=== PATIENT | female | born 2000 | race Caucasian/White ===

== ENCOUNTER 2019-08-15 06:51 | Outpatient (CLI) | payer MEDICAID, SELFPAY ==
--- NOTE | 2019-08-15 07:15 | US_ITS ---
WS: [id number] OBSTETRICAL ULTRASOUND COMPLETE HISTORY: ANATOMY US COMPARISON: 05/30/2019 Single intrauterine gestation in transverse presentation. Cervix is Closed and normal length. Cervical length is 5.9 cm. Normal amount of amniotic fluid surrounds the fetus. Placenta: Anterior, no previa or abruption. Placenta grade 0 Heart: 133 BPM. Four chambers are identified. Anatomy: Intracranial structures and spine are normal. kidneys, stomach and urinary bladd er are unremarkable. Abdominal wall, three-vessel cord and cord insertion site are normal. 4 extremities are present. profile: Unremarkable. Gender: Male. measurements: BPD = 4.4 cm = 19w1d HC = 16.6 cm = 19w2d AC = 14.3 cm = 19w4d FL = 3.1 cm = 19w5d EFW: 303 g., Measurements of insulin concordant. AGA by ultrasound: 19w3d ALHAJI by ultrasound: 01/06/2020 US/US OB >= 14 weeks fetus [id number] IMPRESSION: 1. Single intrauterine gestation of 19w3d with an EDC of 01/06/2020. Compared to the first trimester EDC of 01/07/2020 there has been appropriate interval grow th. 2. Unremarkable screening survey of anatomy.
== END 2019-08-15 06:52 | disposition home or self-care (01) ==
PROVIDERS: Family Provider Family Medicine; PCP Family Medicine; Visit Provider Family Medicine
DX: Z34.02 Encounter for supervision of normal first pregnancy, second trimester (principal)
CPT/HCPCS: 76805

== ENCOUNTER 2019-11-29 08:56 | Outpatient (CLI) | payer MEDICAID, SELFPAY ==
--- NOTE | 2019-11-29 09:30 | US_ITS ---
WS: [id number] RIGHT UPPER QUADRANT ULTRASOUND HISTORY: RUQ PAIN COMPARISON: None available. Liver: 14.2 cm in length. Normal size and echogenicity with no intrahepatic dilatation. No mass. Gallbladder: Normally distended gallbladder. Small amount of sludge in the gallbladder but no shadowi ng. Gallbladder wall is not thickened. CBD: 0.2 cm Pancreas: Normal size and echogenicity. Right kidney: 11.8 cm in length. Normal echogenicity with no mass or hydronephrosis. Aorta and IVC: Unremarkable. No ascites. US/US gall bladder [id number] IMPRESSION: 1. Small amount of gallbladder sludge. No bile duct dilatation or stones ident ified. Patient describes this as the area of intermittent tenderness but is not experiencing symptoms today. 2. Negative liver.
== END 2019-11-29 08:57 | disposition home or self-care (01) ==
LOC: RAD 08:57
PROVIDERS: Family Provider Family Medicine; PCP Family Medicine; Visit Provider Family Medicine
DX: R10.11 Right upper quadrant pain (principal)
CPT/HCPCS: 76705

== ENCOUNTER 2020-01-07 17:40 | Inpatient (IN) | payer MEDICAID, SELFPAY ==
[2020-01-07] VITALS (37 sets, daily range): BP systolic 0–148; BP diastolic 0–83; PULSE 74–98; RESP 16–18; TEMP 36.6–36.8; BMI 29.4
--- NOTE | 2020-01-07 18:35 | P.HP_ITS ---
Providers/Chief Complaint Admitting Physician: Yash Gottlieb MD Primary Care Provider: Yash Gottlieb MD Chief Complaint: Induction of labor History of Present Illness Janna Walters is a 19 year old at 40.0 weeks gestation by LMP consistent with early ultrasound. Her is complicated by The patient is currently doing well. The patient is presenting for induction secondary to postdates. The patient denies any chest pains, shortness of breath, diarrhea, constipation, noted burning with urination, fever, and vaginal bleeding, leakage of fluid. The patient did throw up yesterday and feels that it was secondary to acid reflux. Vitals/I&O/Wt Last Vital Signs Pulse 92 01/07/20 18:29 BP 121/71 01/07/20 18:29 Physical Exam Narrative: EXAM NARRATIVE: General: Alert and oriented x3 Eyes: Pupils equal round and reactive to light and accommodation Mouth: Mucous membranes moist, pharynx non-erythematous Cardiac: Regular rate and rhythm without murmurs Lungs: Clear to auscultation bilaterally without wheezes, crackles or rhonchi Abdomen: Soft, non-tender, fundus consistent with gestational age Extremities: Trace edema in the bilateral lower extremities A&P Assessment and plan (1) Intrauterine : Status: Acute Additional A&P Information The patient is doing well at this time. heart tones are in the mid 150s with moderate variability and good accelerations with a category 1 tracing. Contractions are noted every 2 to 3 minutes, however the patient is not feeling them. We will continue with induction of labor with Cytotec. The patient's cervical exam is 2/50/-2. The patient may have an epidural once she gets to 3 to 4 cm dilation. All questions were answered. Proceed with routine intrapartum management. Attestations Medical Necessity Statement*: The patient will be here for greater than 2 midnights due to routine intrapartum and management of labor and delivery. Coding Level of Care Code Acute Math And Physics Instructor for Chg Fwd Diagnoses Intrauterine Z34.90
[2020-01-07] MEDS: miSOPROStol 100 mcg tablet 25 MCG VAGINAL (19:05)
[2020-01-07 19:07] LABS: Basophils % 0.4 %; Eosinophils % 0.4 %; Hematocrit 36.5 % (37.0-47.0); Hemoglobin 11.5 g/dL (11.5-15.3); Lymphocytes % 26.8 %; Mean Corpuscular HGB Conc 31.5 g/dL (30.0-36.0); Mean Corpuscular Hemoglobin 26.3 pg (28.0-34.0); Mean Corpuscular Volume 83.5 fL (81-99); Mean Platelet Volume 10.4 fL (7.4-10.4); Monocytes # 0.8 10^3/uL (0.2-0.9); Neutrophils # 7.3 10^3/uL (1.8-7.7); Neutrophils % 64.8 %; Nucleated Red Blood Cells % 0 %; Platelet Count 304 10^3/cmm (130-400); Red Blood Count 4.37 10^6/uL (4.1-5.3); White Blood Count 11.3 10^3/uL (4.0-10.0)
[2020-01-07] MEDS: lactated ringers 1,000 ML 999 ML IV (21:30)
[2020-01-08] VITALS (106 sets, daily range): BP systolic 0–152; BP diastolic 0–97; PULSE 72–167; RESP 16–18; TEMP 36.4–37.3; O2SAT 96–100
[2020-01-08] MEDS: lactated ringers 1,000 ML 999 ML IV ×2 (02:20→06:11)
--- NOTE | 2020-01-08 04:15 | ANES.PROC ---
Anesthesia Procedures Procedure/Date: 01/08/20 Epidural: Time Out Performed: Yes Consents Signed: Procedure Consent and NPO Consent Consent: requested by attending/covering physician, from patient, risks and benefits reviewed and patient agrees to proceed Lumbar Level: L3-L4 Epidural position: sitting Epidural procedure: sterile prep of area (betadine), 1% lidocaine to numb the area (3ml), 18 g needle, neg for paresthesia, test dose given, 1.5% xylocaine 1:200k epi (5ml), 0.2% Ropivacaine bolus ml (5ml), placed PCEA, no systemic response, sterile dressing applied, L.U.D. no apparent complications and 0.2% Ropiavacaine @ mls/hr (10ml/hr) Additional Comments: Pt tolerated well and resting comfortable
--- NOTE | 2020-01-08 04:18 | P.ANESUD_ITS ---
Pre-Anesthetic Update Pre-Anesthetic Assessment: Date of Surgery/Procedure: 01/08/20 Preop Kelly gnosis: labor Proposed Procedure: epidural Any changes to Pre-Anesthetic Assessment?: No Last Intake: 21:00 Labs Last 48hrs: Laboratory Results - last 48 hr 01/07/20 18:45 WBC 11.3 H RBC 4.37 Hgb 11.5 Hct 36.5 L MCV 83.5 MCH 26.3 L MCHC 31.5 RDW 14.0 Plt Count 304 MPV 10.4 Neut % (Auto) 64.8 Lymph % (Auto) 26.8 [place] % (Auto) 7.0 Eos % (Auto) 0.4 Baso % (Auto) 0.4 Neut # (Auto) 7.3 Lymph # (Auto) 3.0 [place] # (Auto) 0.8 Eos # (Auto) 0.0 Baso # (Auto) 0.0 Nucleated RBC % (a uto) 0 Nucleated RBCs # 0.0 Vitals: Temperature 98.2 F 01/07/20 22:20 Temperature Source Oral 01/07/20 22:20 Pulse Rate 98 01/08/20 04:14 Pulse Rhythm 01/07/20 19:01 Pulse Strength 3+ Normal 01/07/20 19:01 Respiratory Rate 16 01/07/20 22:20 Respiratory Effort Non-Labored 01/07/20 19:01 Respiratory Depth Normal 01/07/20 19:01 Respiratory Patter n 01/07/20 19:01 Blood Pressure 131/64 01/08/20 04:14 Blood Pressure Coni n 91 01/08/20 04:14 Pulse Oximetry 98 01/08/20 04:08 Oxygen Delivery Me thod 01/07/20 22:20 Cardiac Studies: No Data to Display
[2020-01-08] MEDS: dextrose 5%-lactated ringers 1,000 ML 125 ML IV (04:54)
--- NOTE | 2020-01-08 07:26 | P.PN_ITS ---
Subjective Subjective: Interval history: Patient is doing well. She had 1 dose of Cytotec on the evening of 01/08/2020 and has been keara every 1 to 2 minutes since. The patient had a few scattered late decelerations, however none that were consistent and these improved with position changes and fluid boluses. The patient has received an epidural and she is comfortable. She has no other concerns. Vitals/I&O/Wt Last Vital Signs Temp 98.1 F 01/08/20 04:30 Pulse 83 01/08/20 07:20 Resp 16 01/08/20 04:30 BP 123/79 01/08/20 07:20 Pulse Ox 98 01/08/20 04:08 01/07/20 01/08/20 01/08/20 22:59 06:59 14:59 Intake Total 499.5 / 499.5 1726.517 / 2226.017 Output Total 100 / 100 Balance 499.5 / 499.5 1626.517 / 2126.017 Weight last 48 hrs Weight 166 lb Physical Exam Narrative: EXAM NARRATIVE: General: Alert and oriented x3 Cardiac: Regular rate and rhythm without murmurs Lungs: Clear to auscultation bilaterally without wheezes, crackles or rhonchi Abdomen: Soft, non-tender, fundus consistent with gestational age Extremities: Trace edema in the bilateral lower extremities Urinary Catheter Management^: Elkins: Cath Placed During This Visit: yes Urinary Catheter Date of Insertion: 01/08/20 Urinary Catheter Time of Insertion: 04:30 Data : 01/07/20 18:45 A&P Assessment and plan (1) Intrauterine : Status: Acute Additional A&P Information The patient is doing well at this time. heart tones are in the mid 140s with moderate variability and good accelerations with a category 1 tracing. Contractions are noted every 1 to 3 minutes. The patient is doing well. AROM was performed to augment labor at approximately 7:20 AM. The patient is feeling well. Proceed with routine intrapartum induction of labor. All questions answered. Attestations Medical Necessity Statement*: The patient will be here for greater than 2 midnights due to routine intrapartum and management of labor and delivery. Coding Level of Care Code Acute Supervisor Powdered Metal for Valente Estrada Diagnoses Intrauterine Z34.90
[2020-01-08] MEDS: oxytocin 30 UNIT/500 ML BAG 4 UNIT IV (09:08)
[2020-01-08] MEDS: miSOPROStol 200 mcg Tablet 800 MCG PR (11:17)
--- NOTE | 2020-01-08 11:44 | PM.DELIVERY ---
Delivery Note: Date of delivery: January 08, 2020 Pre-delivery diagnoses: 1. Intrauterine at 40.1 weeks gestation 2. Post-delivery diagnoses: 1. Intrauterine status post spontaneous vaginal delivery at 40.1 weeks gestation 2. Delivery of healthy male weighing 6 pounds 15 ounces with Apgars of 7 and 9 3. GBS negative Procedure: Spontaneous vaginal delivery Op report anesthesia: Epidural Estimated blood loss (mL): 250 Findings: 1. Delivery of healthy male weighing 6 pounds 15 ounces with Apgars of 7 and 9 2. Intact placenta with central umbilical cord insertion site. Pre-Delivery Course: The patient presented to labor and delivery triage for a scheduled induction of labor for postdates on 01/07/2020. The first dose of Cytotec was placed around 7:30 PM. The patient began keara well and keara on her own to the evening and changed to 5 cm by the morning of 01/08/2020. AROM was performed at 7:26 AM to augment the labor process. Clear fluid was noted. The patient's contractions then spaced out, and 4 units of IV Pitocin was started to augment labor. The patient continued to make good change and she was complete by 10:13 AM on 01/08/2020. Delivery: The patient began pushing at 10:32 AM on 01/08/2020. The patient pushed well and the infant delivered in the OA position at 11:08 AM on 01/08/2020. The right shoulder was the anterior shoulder and it delivered without complication. The rest of the infant delivered without complication. No nuchal cord was noted. The infant had good tone at . The mouth and nose were bulb suctioned by myself. The infant began crying shortly after delivery. The infant was placed on the mother's chest where the nurses were waiting to care for him. The cord was clamped by myself after approximately 1 minute. The cord was cut by the 's father. Cord blood was obtained. The cord was then drained of blood and traction was placed on the umbilical cord. The placenta delivered without complication at 11:13 AM on 01/08/2020. The placenta was noted to be intact with a central umbilical cord insertion site. IV Pitocin was bolused. The cervix was inspected and no lacerations were noted. Vaginal wall was inspected and a few abrasions were noted but no suturing was needed. The patient did have moderate bleeding after delivery and was given 800 mcg of Cytotec. The patient's bleeding slowed down well after this. Currently both the mother and infant are doing well. A&P Assessment and plan (1) Intrauterine : Status: Acute Coding Level of Care Code Acute Flooring Machine Operator for Chg Fwd Diagnoses Intrauterine Z34.90
[2020-01-08 23:57] LABS: Hematocrit 32.2 % (37.0-47.0); Hemoglobin 10.2 g/dL (11.5-15.3); Mean Corpuscular HGB Conc 31.7 g/dL (30.0-36.0); Mean Corpuscular Hemoglobin 26.8 pg (28.0-34.0); Mean Corpuscular Volume 84.7 fL (81-99); Mean Platelet Volume 10.5 fL (7.4-10.4); Platelet Count 237 10^3/cmm (130-400); Red Cell Distribution Width 14.4 % (12.1-15.1); White Blood Count 15.5 10^3/uL (4.0-10.0)
[2020-01-09 01:30] VITALS: BP 126/82; PULSE 92; RESP 18; TEMP 36.7
[2020-01-09 05:14] VITALS: BP 117/76; PULSE 64; RESP 18; TEMP 36.6
[2020-01-09 10:25] VITALS: BP 109/66; PULSE 78; RESP 18
--- NOTE | 2020-01-09 14:38 | PM.DCS ---
Discharge Providers Date of Admission: 01/07/20 17:40 Date of Discharge: January 09, 2020 Attending Provider at Admission: Yash Gottlieb MD Attending Provider at Discharge: Yash Gottlieb MD Primary Care Provider: Yash Gottlieb MD Diagnoses at Discharge Discharge Diagnosis (1) Intrauterine : Status: Acute Other Information Additional DC diagnoses/information: 1. Intrauterine status post spontaneous vaginal delivery at 40.1 weeks gestation Reason for Visit Reason for Visit: Induction of labor Hospital Course Hospital Course: The patient presented to labor and delivery triage for a scheduled induction of labor for postdates on 01/07/2020. The first dose of Cytotec was placed around 7:30 PM. The patient began keara well and keara on her own to the evening and changed to 5 cm by the morning of 01/08/2020. AROM was performed at 7:26 AM to augment the labor process. Clear fluid was noted. The patient's contractions then spaced out, and 4 units of IV Pitocin was started to augment labor. The patient continued to make good change and she was complete by 10:13 AM on 01/08/2020. The patient began pushing at 10:32 AM on 01/08/2020. The patient pushed well and the infant delivered in the OA position at 11:08 AM on 01/08/2020. The right shoulder was the anterior shoulder and it delivered without complication. The rest of the delivered without complication. No nuchal cord was noted. The infant had good tone at . The mouth and nose were bulb suctioned by myself. The began crying shortly after delivery. The was placed on the mother's chest where the nurses were waiting to care for him. The cord was clamped by myself after approximately 1 minute. The cord was cut by the infant's father. Cord blood was obtained. The cord was then drained of blood and traction was placed on the umbilical cord. The placenta delivered without complication at 11:13 AM on 01/08/2020. The placenta was noted to be intact with a central umbilical cord insertion site. IV Pitocin was bolused. The cervix was inspected and no lacerations were noted. Vaginal wall was inspected and a few abrasions were noted but no suturing was needed. The patient did have moderate bleeding after delivery and was given 800 mcg of Cytotec. The patient's bleeding slowed down well after this. Currently both the mother and infant are doing well. the patient has done well. Her bleeding has decreased well. She is ambulating, voiding, passing gas and tolerating food by mouth. Her pain is well controlled. All questions were answered. The patient is in agreement with discharge home at this time. Return for recheck at 6 weeks or sooner if needed. Physical Exam Narrative: EXAM NARRATIVE: General: Alert and oriented x3 Cardiac: Regular rate and rhythm without murmurs Lungs: Clear to auscultation bilaterally without wheezes, crackles or rhonchi Abdomen: Soft, mild diffuse tenderness. Uterus is firm and 3 cm below the umbilicus. Extremities: Trace edema in the bilateral lower extremities Urinary Catheter Management^: Elkins: Cath Placed During This Visit: yes, but has since been removed by the nurse Reason for Continuing Indwelling Catheter: Decision to DC Catheter Urinary Catheter Date of Insertion: 01/08/20 Urinary Catheter Time of Insertion: 04:30 Date Urinary Catheter Removed: 01/08/20 Time Urinary Catheter Discontinued: 10:32 Discharge Data Data Completed and Pending: Labs from last 24 hours 01/08/20 23:30 WBC 15.5 H RBC 3.80 L Hgb 10.2 L Hct 32.2 L MCV 84.7 MCH 26.8 L MCHC 31.7 RDW 14.4 Plt Count 237 MPV 10.5 H Vitals: Last Vital Signs Temp 97.9 F 01/09/20 05:14 Pulse 64 01/09/20 05:14 Resp 18 01/09/20 05:14 BP 117/76 01/09/20 05:14 Pulse Ox 98 01/08/20 04:08 Discharge Plan Discharge Patient Disposition: Home, Self-Care Condition: Good Prescriptions: New ibuprofen 800 mg Tablet 800 mg PO TID Qty: 60 RF: 0 ferrous sulfate 325 mg (65 mg iron) tablet 325 mg PO BID Qty: 30 RF: 0 Continued 28 mg iron- 800 mcg Tablet 1 tab PO DAILY RF: 0 Discharge Orders: Discharge Order (Routine); Ordered 01/09/20 Ordered By: Yash Gottlieb Referrals: Yash Gottlieb MD [Primary Care Provider] - 6 Weeks Discharge Diet: Advance as tolerated Discharge Activity: Increase activity as tolerated Activity Restrictions/Additional Instructions: Nothing per vagina for 6 weeks. No baths for 6 weeks, however showers are okay. If you have any concerns prior to your appointment, please call [facility] for a sooner appointment. Discharge Attestations Time Spent in Discharge Care*: greater than 30 min Specific Discharge Activities: Specific discharge activities: educating patient, educating and/or supporting family/caregiver and documenting/other paperwork Quality Metrics Clinical Quality Measures During this hospital stay, did patient experience: None Coding Level of Care Code Acute Investment Recovery Technician for Chg Fwd Diagnoses Intrauterine Z34.90
[2020-01-09 16:19] VITALS: BP 115/70; PULSE 85; RESP 18; TEMP 36.7
[2020-01-09 17:45] VITALS: BP 112/78; PULSE 65; RESP 18; TEMP 36.7; O2SAT 98
== END 2020-01-09 17:50 | disposition home or self-care (01) | DRG 807 ==
PROVIDERS: Admitting Provider Family Medicine; PCP Family Medicine; Visit Provider Family Medicine
DX: O48.0 Post-term pregnancy (principal); Z37.0 Single live birth; Z3A.40 40 weeks gestation of pregnancy
CPT/HCPCS: 12345; 36415; 51702; 59025; 59409; 85025; 85027; 98960; J2795

== ENCOUNTER 2020-02-16 01:56 | Emergency (ER) | payer MEDICAID, SELFPAY ==
[2020-02-16] VITALS (7 sets, daily range): BP systolic 98–127; BP diastolic 62–88; PULSE 62–82; RESP 16–18; TEMP 36.5–36.6; O2SAT 99–100; BMI 25.8
--- NOTE | 2020-02-16 02:43 | W.ED.ABDPA2 ---
Documented by User: Tameka Moreira 02/16/20 04:59 HPI - Abdominal Pain General: Chief Complaint: Abdominal Pain Stated Complaint: abd pain Time Seen by Provider: 02/16/20 02:04 Source: patient and family Mode of arrival: ambulatory Limitations: no limitations History of Present Illness: HPI narrative: Janna is a nice 19-year-old female who comes in complaining of epigastric and right upper quadrant pain. She states she is had pain like this intermittently since August. She states that she has been told she has a bad gallbladder but has been unable to care for this. Describes pain as a deep aching pain without radiation. She is had associated nausea and vomiting. The symptoms tonight have been going on for the past 2-1/2 hours. She is unaware of any eliciting factors. She denies any aggravating or alleviating factors. She denies any diarrhea, constipation, no vaginal discharge/bleeding or urinary symptoms. Associated Symptoms: Reports nausea and vomiting; Denies chills, coffee ground emesis, constipation, GI cramping, diarrhea, dysuria, fever(s), heartburn, hematochezia, hematuria, hematemesis, melena and syncope Review of Systems Const: Denies: fever(s), chills, body aches, fatigue, malaise or diaphoresis Eyes: Denies: change in vision, blurry vision, blind spots, photophobia, eye discharge or eye redness ENMT: Denies: throat pain, odynophagia, hoarseness, swelling of lips/tongue, oral sores, ear or mastoid pain, ear discharge, change in hearing or nasal discharge Card: Denies: chest pain, palpitations, irregular heart rhythm, edema, lightheadedness, syncope, pre-syncope, dyspnea on exertion or orthopnea Resp: Denies: dyspnea, productive cough, non-productive cough, wheezing, hemoptysis or chest congestion GI: Reports: abdominal pain, nausea and vomiting; Denies: hematemesis, coffee ground emesis, heartburn, diarrhea, constipation, GI cramping, hematochezia or melena : Denies: flank pain, dysuria, urinary frequency, urinary urgency or hematuria Musc: Denies: neck pain, back pain, extremity pain, extremity swelling, joint pain, joint swelling, joint redness, joint warmth or joint stiffness Skin/Breast: Denies: rash, pruritus, erythema, skin tenderness or jaundice Neuro: Denies: headache(s), numbness in extremities, weakness in extremities, sensory changes, lack of coordination, difficulty walking, dizziness, vertigo, confusion, Slurred speech present or seizure-like activity Tono/Lymph: Denies: easy bruising, easy bleeding, petechiae, purpura or enlarged lymph nodes All/Imm: Denies: urticaria, throat swelling, tongue swelling, facial swelling or acute wheezing PFSH ED PFSH: Medical History No pertinent past medical history Surgical History No pertinent past surgical history Physical Exam Const: COMMON NORMALS: no acute distress, patient oriented x3, no limitations, healthy appearing and well nourished GENERAL APPEARANCE: cooperative, well kempt and well developed HENMT: COMMON NORMALS: normocephalic, atraumatic, external ears normal, EAC's normal and Normal external nose present HEAD & SCALP: normal to inspection, normocephalic and atraumatic FACE & SINUS: normal facial exam and face symmetric NOSE: Normal external nose present and Normal nares present EXTERNAL EAR: Yes external ears normal EXTERNAL AUDITORY CANAL: EAC's normal MOUTH: Normal oral and palatal mucosa present, lip normal and tongue normal Eye: COMMON NORMALS: Equal, round and reactive pupils present and conjunctivae normal GENERAL EYE: appearance normal, both eyes and all related structures ALIGNMENT: Yes alignment normal PERIORBITAL: periorbital findings normal EYELID: eyelids normal CONJUNCTIVA: Yes conjunctivae normal SCLERA: sclerae normal PUPIL: Yes Equal, round and reactive pupils present Neck/C-Spine: COMMON NORMALS: full ROM, no lymphadenopathy, supple, no meningeal signs and no JVD GENERAL: Yes normal visual inspection and Yes trachea midline Chest: COMMONS NORMALS: normal inspection of the chest and normal palpation of entire chest wall Resp: COMMON NORMALS: normal respiratory effort, No retractions and No use of accessory muscles EFFORT & INSPECTION: Yes able to speak in complete sentences and Yes symmetric chest movement AUSCULTATION: no crackles, no rales, no rhonchi and no wheezes Cardio: COMMON NORMALS: no JVD, regular rate, regular rhythm, S1 normal heart sound present and S2 normal heart sound present RATE: regular rate RHYTHM: regular rhythm HEART SOUNDS: S1 normal heart sound present, S2 normal heart sound present, no click, no gallops, no murmurs, no rubs and abnormal split S2 GI: COMMON NORMALS: Soft to palpation and No hepatosplenomegaly present PALPATION: Yes Soft to palpation, Yes Tenderness to palpation present (GI) Details: RUQ, No Guarding due to palpation present (GI), No Rigid due to palpation, Yes No hepatosplenomegaly present, No Hernia present, No Palpable mass present and No Pulsatile mass present : COMMON NORMALS: Yes no CVA tenderness BLADDER/KIDNEY EXAM: Yes no CVA tenderness EXTERNAL FEMALE EXAM: No Hernia present Back/Pelvis: COMMON NORMALS: no CVA tenderness, thoracic and lumbar spine normal to inspection, no thoracic nor lumbar tenderness and thoraco-lumbar ROM normal Extremity: COMMON NORMALS: normal to inspection, full ROM, capillary refill normal, no joint enlargement, no clubbing, cyanosis or edema and no calf tenderness Neuro: COMMON NORMALS: patient oriented x3, CN's II-XII intact bilaterally, moves all extremities, no focal motor deficits and no sensory deficits noted MENINGEAL SIGNS: Yes no meningeal signs SPEECH: speech normal Psych: COMMON NORMALS: mental status grossly normal, Normal thought process present, cooperative, normal affect, speech normal and activity/motor behavior normal APPEARANCE: Yes well kempt SPEECH: Yes normal speech THOUGHT PROCESS: Normal thought process present Skin: COMMON NORMALS: no rashes or lesions noted, turgor normal, no jaundice, no petechiae and no mottling GENERAL SKIN EXAM: no rashes or lesions noted and turgor normal Course Vital Signs: Vital signs: Vital Signs Temperature 97.7 F 02/16/20 04:26 Pulse Rate 82 02/16/20 11:34 Respiratory Rate 18 02/16/20 11:34 Blood Pressure 111/71 02/16/20 11:34 Pulse Oximetry 100 02/16/20 11:34 MDM - Abdominal Pain Lab Data: Attestation: I reviewed the patient's lab results. Labs: Lab Results 02/16/20 02/16/20 02/16/20 Range/Units 02:51 02:51 02:51 WBC 11.9 H (4.0-10.0) 10^3/ uL RBC 4.62 (4.1-5.3) 10^6/u L Hgb 12.2 (11.5-15.3) g/dL Hct 39.1 (37.0-47.0) % MCV 84.6 (81-99) fL MCH 26.4 L (28.0-34.0) pg MCHC 31.2 (30.0-36.0) g/dL RDW 13.4 (12.1-15.1) % Plt Count 275 (130-400) 10^3/c mm MPV 10.2 (7.4-10.4) fL Neut % (Auto) 60.9 % Lymph % (Auto) 29.9 % [place] % (Auto) 5.6 % Eos % (Auto) 2.5 % Baso % (Auto) 0.8 % Neut # (Auto) 7.22 (1.8-7.7) 10^3/u L Lymph # (Auto) 3.6 (0.8-4.8) 10^3/u L [place] # (Auto) 0.7 (0.2-0.9) 10^3/u L Eos # (Auto) 0.3 (0.0-0.8) 10^3/u L Baso # (Auto) 0.1 (0.0-0.1) 10^3/u L Nucleated RBC % (a uto) 0 % Nucleated RBCs # 0.0 /100WBC Sodium 143 (136-145) mmol/L Potassium 3.6 (3.5-5.1) mmol/L Chloride 107 (98-107) mmol/L Carbon Dioxide 24 (22-29) mmol/L Anion Gap 15.6 (5-19) BUN 8 (6-20) mg/dL Creatinine 0.7 (0.5-0.9) mg/dL GFR Calculation 105.6 (90-130) mL/min Glucose 92 (65-115) mg/dL Calculated Osmolal ity 292 (285-295) mOsm/k g Calcium 8.8 (8.5-10.5) mg/dL Total Bilirubin 0.2 (0.15-1.2) mg/dL AST 17 (0-32) U/L ALT 13 (0-33) U/L Alkaline Phosphata se 115 H (35-105) IU/L Total Protein 7.1 (6.6-8.7) g/dL Albumin 4.1 (3.5-5.2) g/dL Globulin 3.0 (1.3-4.6) g/dL Lipase 292 H (13-60) U/L HCG, Qual Negative (Negative) Urine Color (Yellow) Urine Appearance (CLEAR) Urine pH (5-7) Ur Specific Gravit y (1.005-1.030) Urine Protein (Negative) Urine Glucose (UA) (Normal) Urine Ketones (Negative) Urine Blood (Negative) Urine Nitrate (Negative) Urine Bilirubin (NEGATIVE) Urine Urobilinogen (Negative) mg/dL Ur Leukocyte Adore ase (Negative) Urine RBC (0-2) /hpf Urine WBC (0-5) /hpf Ur Squamous Epith Cells (0-5) Urine Bacteria (NONE) Nasal/Oral COVID-1 9 PCR 02/16/20 02/16/20 Range/Units 04:30 11:31 WBC (4.0-10.0) 10^3/ uL RBC (4.1-5.3) 10^6/u L Hgb (11.5-15.3) g/dL Hct (37.0-47.0) % MCV (81-99) fL MCH (28.0-34.0) pg MCHC (30.0-36.0) g/dL RDW (12.1-15.1) % Plt Count (130-400) 10^3/c mm MPV (7.4-10.4) fL Neut % (Auto) % Lymph % (Auto) % [place] % (Auto) % Eos % (Auto) % Baso % (Auto) % Neut # (Auto) (1.8-7.7) 10^3/u L Lymph # (Auto) (0.8-4.8) 10^3/u L [place] # (Auto) (0.2-0.9) 10^3/u L Eos # (Auto) (0.0-0.8) 10^3/u L Baso # (Auto) (0.0-0.1) 10^3/u L Nucleated RBC % (a uto) % Nucleated RBCs # /100WBC Sodium (136-145) mmol/L Potassium (3.5-5.1) mmol/L Chloride (98-107) mmol/L Carbon Dioxide (22-29) mmol/L Anion Gap (5-19) BUN (6-20) mg/dL Creatinine (0.5-0.9) mg/dL GFR Calculation (90-130) mL/min Glucose (65-115) mg/dL Calculated Osmolal ity (285-295) mOsm/k g Calcium (8.5-10.5) mg/dL Total Bilirubin (0.15-1.2) mg/dL AST (0-32) U/L ALT (0-33) U/L Alkaline Phosphata se (35-105) IU/L Total Protein (6.6-8.7) g/dL Albumin (3.5-5.2) g/dL Globulin (1.3-4.6) g/dL Lipase (13-60) U/L HCG, Qual (Negative) Urine Color Yellow (Yellow) Urine Appearance Hazy A (CLEAR) Urine pH 6 (5-7) Ur Specific Gravit y 1.020 (1.005-1.030) Urine Protein Neg (Negative) Urine Glucose (UA) Norm (Normal) Urine Ketones Negative (Negative) Urine Blood Neg (Negative) Urine Nitrate Negative (Negative) Urine Bilirubin Neg (NEGATIVE) Urine Urobilinogen 1 H (Negative) mg/dL Ur Leukocyte Adore ase Negative (Negative) Urine RBC 0-4 H (0-2) /hpf Urine WBC 0-4 H (0-5) /hpf Ur Squamous Epith Cells 5-10 H (0-5) Urine Bacteria 1+ H (NONE) Nasal/Oral COVID-1 9 PCR Not detected Imaging Data ^: US: Radiologist's impression: [address] [address] Ultrasound Report Signed Patient: Janna Walters Unit #: [id number] : 2000 Age/Sex: 19 / F ADM Date: 02/16/20 Loc: ER Room/Bed: Attending Dr: Ordering Provider/Ordering MD: Tameka Moreira DO Date of Service: 02/16/20 Procedure(s): US gall bladder 98287 Accession Number(s): [id number] Report Number: [id number] PROCEDURE INFORMATION: Exam: US Abdomen, Limited; Right Upper Quadrant Exam date and time: 02/16/2020 3:49 AM Age: 19 years old Clinical indication: Abdominal pain; Acute TECHNIQUE: Imaging protocol: US abdomen. Real time ultrasound with image documentation. Limited exam focused on the right upper quadrant. COMPARISON: US gall bladder [id number] 11/29/2019 9:24 AM FINDINGS: Liver: Hepatic parenchymal echotexture is normal. No visible mass. Gallbladder: Gallbladder contains sludge and stones. The lumen is distended. Sonographic Kruger sign is positive. No significant gallbladder wall thickening. Common bile duct: The common bile duct is nondilated measuring 4 mm. Pancreas: The pancreas is unremarkable. Right kidney: The right kidney is unremarkable. Aorta: The abdominal aorta is unremarkable. Portal venous: The portal vein is patent. Inferior vena cava: The IVC is unremarkable. US/US gall bladder [id number] IMPRESSION: Suspicious findings for acute cholecystitis including gallbladder distention, stones, and positive sonographic Kruger sign. Dictated By: Jean Claude Ruvalcaba MD Signed By: Jean Claude Ruvalcaba MD Signed Date/Time: 02/16/20413 DD/ 2 Discharge Plan Discharge Patient Disposition: Home, Self-Care Clinical Impression: Cholecystitis Condition: Stable Prescriptions: New hydrocodone-acetaminophen 5-325 mg tablet 1 tab PO Q6H PRN (Reason: pain) Qty: 25 RF: 0 Zofran 4 mg tablet 4 mg PO Q6H PRN (Reason: nausea and vomiting) Qty: 20 RF: 0 No Action PNV cmb#95-ferrous fumarate-FA [] 28 mg iron- 800 mcg Tablet 1 tab PO DAILY RF: 0 ferrous sulfate 325 mg (65 mg iron) tablet 325 mg PO BID Qty: 30 RF: 0 Discharge Orders: Discharge Order (Routine); Ordered 02/16/20 Ordered By: Campbell Lauren Referrals: Dominik Hansen MD [Physician] - (Follow-up on cholecystitis from the ER over the weekend. Discussed with him he was planning on take her to surgery on Tuesday) Discharge Diet: As Directed Discharge Activity: Limit activity as instructed Activity Restrictions/Additional Instructions: Discharge home on bland diet. No meats no tomato based products no spicy foods no citrus fruits no greasy or fried foods. Contact Dr. Hansen's office for a follow-up on February 18 with anticipated surgery on February 19. You have been COVID swab today in anticipation of your surgery as a prescreening test. We asked that you self isolate completely at your home if you do have to leave home wear a mask. Discharge Date/Time: 02/16/20 12:00 Sign Out Sign Out Data: Patient Sign Out occurred on 02/16/20 at 05:53. Patient's care was discussed, and care was transferred from Tameka Moreira to Campbell Lauren DO. Sign Out Comment: Case turned over to Dr. Lauren at change of shift, chemistry panel pending. Last updated by Tameka Moreira at 02/16/20 05:35 Coding Level of Care Code ED Dye Tank Tender for Chg Fwd Exam Comprehensive Documented by User: Campbell Lauren DO 02/19/20 07:18 HPI - Abdominal Pain General: Chief Complaint: Abdominal Pain Stated Complaint: abd pain Time Seen by Provider: 02/16/20 02:04 [facility] ED PFSH: Medical History No pertinent past medical history Surgical History No pertinent past surgical history Course Vital Signs: Vital signs: Vital Signs Temperature 97.7 F 02/16/20 04:26 Pulse Rate 82 02/16/20 11:34 Respiratory Rate 18 02/16/20 11:34 Blood Pressure 111/71 02/16/20 11:34 Pulse Oximetry 100 02/16/20 11:34 MDM - Abdominal Pain MDM Narrative: Medical decision making narrative: Reviewed findings with the patient and imaging. Discussed Dr. Hansen organ to go ahead and discharge the patient home she 6-week I do believe she has cholecystitis although it is not acute at this time. We will discharge her home with antiemetics pain control reviewed dietary discharge instructions. She will see Dr. Hansen on the with anticipation of cholecystectomy on outpatient basis on the . She has any worsening problems she should return. we do it did swab her for COVID today, this is ended in anticipation of surgery for screening purposes she has not had any symptoms. I did recommend to her that she self isolate between now and when she has surgery to avoid any potential for community-acquired COVID prior to surgery. Lab Data: Labs: Lab Results 02/16/20 02/16/20 02/16/20 Range/Units 02:51 02:51 02:51 WBC 11.9 H (4.0-10.0) 10^3/ uL RBC 4.62 (4.1-5.3) 10^6/u L Hgb 12.2 (11.5-15.3) g/dL Hct 39.1 (37.0-47.0) % MCV 84.6 (81-99) fL MCH 26.4 L (28.0-34.0) pg MCHC 31.2 (30.0-36.0) g/dL RDW 13.4 (12.1-15.1) % Plt Count 275 (130-400) 10^3/c mm MPV 10.2 (7.4-10.4) fL Neut % (Auto) 60.9 % Lymph % (Auto) 29.9 % [place] % (Auto) 5.6 % Eos % (Auto) 2.5 % Baso % (Auto) 0.8 % Neut # (Auto) 7.22 (1.8-7.7) 10^3/u L Lymph # (Auto) 3.6 (0.8-4.8) 10^3/u L [place] # (Auto) 0.7 (0.2-0.9) 10^3/u L Eos # (Auto) 0.3 (0.0-0.8) 10^3/u L Baso # (Auto) 0.1 (0.0-0.1) 10^3/u L Nucleated RBC % (a uto) 0 % Nucleated RBCs # 0.0 /100WBC Sodium 143 (136-145) mmol/L Potassium 3.6 (3.5-5.1) mmol/L Chloride 107 (98-107) mmol/L Carbon Dioxide 24 (22-29) mmol/L Anion Gap 15.6 (5-19) BUN 8 (6-20) mg/dL Creatinine 0.7 (0.5-0.9) mg/dL GFR Calculation 105.6 (90-130) mL/min Glucose 92 (65-115) mg/dL Calculated Osmolal ity 292 (285-295) mOsm/k g Calcium 8.8 (8.5-10.5) mg/dL Total Bilirubin 0.2 (0.15-1.2) mg/dL AST 17 (0-32) U/L ALT 13 (0-33) U/L Alkaline Phosphata se 115 H (35-105) IU/L Total Protein 7.1 (6.6-8.7) g/dL Albumin 4.1 (3.5-5.2) g/dL Globulin 3.0 (1.3-4.6) g/dL Lipase 292 H (13-60) U/L HCG, Qual Negative (Negative) Urine Color (Yellow) Urine Appearance (CLEAR) Urine pH (5-7) Ur Specific Gravit y (1.005-1.030) Urine Protein (Negative) Urine Glucose (UA) (Normal) Urine Ketones (Negative) Urine Blood (Negative) Urine Nitrate (Negative) Urine Bilirubin (NEGATIVE) Urine Urobilinogen (Negative) mg/dL Ur Leukocyte Adore ase (Negative) Urine RBC (0-2) /hpf Urine WBC (0-5) /hpf Ur Squamous Epith Cells (0-5) Urine Bacteria (NONE) Nasal/Oral COVID-1 9 PCR 02/16/20 02/16/20 Range/Units 04:30 11:31 WBC (4.0-10.0) 10^3/ uL RBC (4.1-5.3) 10^6/u L Hgb (11.5-15.3) g/dL Hct (37.0-47.0) % MCV (81-99) fL MCH (28.0-34.0) pg MCHC (30.0-36.0) g/dL RDW (12.1-15.1) % Plt Count (130-400) 10^3/c mm MPV (7.4-10.4) fL Neut % (Auto) % Lymph % (Auto) % [place] % (Auto) % Eos % (Auto) % Baso % (Auto) % Neut # (Auto) (1.8-7.7) 10^3/u L Lymph # (Auto) (0.8-4.8) 10^3/u L [place] # (Auto) (0.2-0.9) 10^3/u L Eos # (Auto) (0.0-0.8) 10^3/u L Baso # (Auto) (0.0-0.1) 10^3/u L Nucleated RBC % (a uto) % Nucleated RBCs # /100WBC Sodium (136-145) mmol/L Potassium (3.5-5.1) mmol/L Chloride (98-107) mmol/L Carbon Dioxide (22-29) mmol/L Anion Gap (5-19) BUN (6-20) mg/dL Creatinine (0.5-0.9) mg/dL GFR Calculation (90-130) mL/min Glucose (65-115) mg/dL Calculated Osmolal ity (285-295) mOsm/k g Calcium (8.5-10.5) mg/dL Total Bilirubin (0.15-1.2) mg/dL AST (0-32) U/L ALT (0-33) U/L Alkaline Phosphata se (35-105) IU/L Total Protein (6.6-8.7) g/dL Albumin (3.5-5.2) g/dL Globulin (1.3-4.6) g/dL Lipase (13-60) U/L HCG, Qual (Negative) Urine Color Yellow (Yellow) Urine Appearance Hazy A (CLEAR) Urine pH 6 (5-7) Ur Specific Gravit y 1.020 (1.005-1.030) Urine Protein Neg (Negative) Urine Glucose (UA) Norm (Normal) Urine Ketones Negative (Negative) Urine Blood Neg (Negative) Urine Nitrate Negative (Negative) Urine Bilirubin Neg (NEGATIVE) Urine Urobilinogen 1 H (Negative) mg/dL Ur Leukocyte Adore ase Negative (Negative) Urine RBC 0-4 H (0-2) /hpf Urine WBC 0-4 H (0-5) /hpf Ur Squamous Epith Cells 5-10 H (0-5) Urine Bacteria 1+ H (NONE) Nasal/Oral COVID-1 9 PCR Not detected Discharge Plan Discharge Patient Disposition: Home, Self-Care Clinical Impression: Cholecystitis Condition: Stable Prescriptions: New hydrocodone-acetaminophen 5-325 mg tablet 1 tab PO Q6H PRN (Reason: pain) Qty: 25 RF: 0 Zofran 4 mg tablet 4 mg PO Q6H PRN (Reason: nausea and vomiting) Qty: 20 RF: 0 No Action PNV cmb#95-ferrous fumarate-FA [] 28 mg iron- 800 mcg Tablet 1 tab PO DAILY RF: 0 ferrous sulfate 325 mg (65 mg iron) tablet 325 mg PO BID Qty: 30 RF: 0 Discharge Orders: Discharge Order (Routine); Ordered 02/16/20 Ordered By: Campbell Lauren Referrals: Dominik Hansen MD [Physician] - (Follow-up on cholecystitis from the ER over the weekend. Discussed with him he was planning on take her to surgery on Tuesday) Discharge Diet: As Directed Discharge Activity: Limit activity as instructed Activity Restrictions/Additional Instructions: Discharge home on bland diet. No meats no tomato based products no spicy foods no citrus fruits no greasy or fried foods. Contact Dr. Hansen's office for a follow-up on February 18 with anticipated surgery on February 19. You have been COVID swab today in anticipation of your surgery as a prescreening test. We asked that you self isolate completely at your home if you do have to leave home wear a mask. Discharge Date/Time: 02/16/20 12:00 Sign Out Sign Out Data: Patient Sign Out occurred on 02/16/20 at 05:53. Patient's care was discussed, and care was transferred from Tameka Moreira to Campbell Lauren DO. Sign Out Comment: Case turned over to Dr. Lauren at change of shift, chemistry panel pending. Last updated by Tameka Moreira at 02/16/20 05:35 Coding Level of Care Code ED Dye Tank Tender for Chg Fwd Exam Comprehensive
[2020-02-16 03:17] LABS: Basophils # 0.1 10^3/uL (0.0-0.1); Basophils % 0.8 %; Eosinophils # 0.3 10^3/uL (0.0-0.8); Eosinophils % 2.5 %; Hematocrit 39.1 % (37.0-47.0); Hemoglobin 12.2 g/dL (11.5-15.3); Lymphocytes # 3.6 10^3/uL (0.8-4.8); Lymphocytes % 29.9 %; Mean Corpuscular HGB Conc 31.2 g/dL (30.0-36.0); Mean Corpuscular Hemoglobin 26.4 pg (28.0-34.0); Mean Corpuscular Volume 84.6 fL (81-99); Mean Platelet Volume 10.2 fL (7.4-10.4); Monocytes # 0.7 10^3/uL (0.2-0.9); Monocytes % 5.6 %; Neutrophils # 7.22 10^3/uL (1.8-7.7); Neutrophils % 60.9 %; Nucleated Red Blood Cells % 0 %; Platelet Count 275 10^3/cmm (130-400); Red Blood Count 4.62 10^6/uL (4.1-5.3); Red Cell Distribution Width 13.4 % (12.1-15.1); White Blood Count 11.9 10^3/uL (4.0-10.0)
[2020-02-16] MEDS: ondansetron 2 mg/ML SDV 2 mL 4 MG IVP (04:04)
[2020-02-16] MEDS: morphine 4 mg/mL SDV 1 mL IVP (04:06)
[2020-02-16] MEDS: sodium chloride 0.9% 1,000 ML 999 ML IV (04:14)
[2020-02-16 04:56] LABS: HCG, Serum Qual Negative (Negative)
[2020-02-16 05:19] LABS: Urine Appearance Hazy (CLEAR); Urine Color Yellow (Yellow)
[2020-02-16 05:22] LABS: Bacteria Urine 1+; Bilirubin Urine Neg (NEGATIVE); Blood Urine Neg (Negative); Glucose Urine UA Norm (Normal); Ketones Urine Negative (Negative); Leukocyte Esterase Urine Negative (Negative); Nitrate Urine Negative (Negative); Protein Urine Neg (Negative); RBC Urine 0-4 /hpf (0-2); Urobilinogen Urine 1 mg/dL (Negative); WBC Urine 0-4 /hpf (0-5); pH Urine 6 (5-7)
[2020-02-16 05:23] LABS: Add Urine Culture? No
[2020-02-16] MEDS: piperacillin-tazobactam 3.375 GM in sodium chloride 0.9% (plus) 50 ML IV (05:33)
[2020-02-16 06:01] LABS: Alanine Aminotransferase 13 U/L (0-33); Albumin Level 4.1 g/dL (3.5-5.2); Alkaline Phosphatase 115 IU/L (35-105); Anion Gap 15.6 (5-19); Aspartate Amino Transferase 17 U/L (0-32); Blood Urea Nitrogen 8 mg/dL (6-20); Calcium 8.8 mg/dL (8.5-10.5); Carbon Dioxide 24 mmol/L (22-29); Chloride 107 mmol/L (98-107); Creatinine Clr Calc Pharmacy 116.2615; Glomerular Filtration Rate 105.6 mL/min (90-130); Glucose 92 mg/dL (65-115); Lipase 292 U/L (13-60); Osmolality Calculated 292 mOsm/kg (285-295); Potassium 3.6 mmol/L (3.5-5.1); Sodium 143 mmol/L (136-145); Total Bilirubin 0.2 mg/dL (0.15-1.2); Total Protein 7.1 g/dL (6.6-8.7)
--- NOTE | 2020-02-16 06:30 | MRR_ITS ---
PROCEDURE INFORMATION: Exam: MR Abdomen Without Contrast, MRCP. Exam date and time: 02/16/2020 8:30 AM Age: 19 years old Clinical indication: Abdominal pain; Patient HX: PT C/O generalized abd pain since August 2019. Worse this morning. ; Additional info: Supected choledocolithiasis - TECHNIQUE: Imaging protocol: MR of the abdomen without contrast. COMPARISON: US gall bladder [id number] 02/16/2020 3:44 AM FINDINGS: Liver: No mass. Gallbladder and bile ducts: Cholelithiasis, no gallbladder wall thickening or pericholecystic edema. No intrahepatic or extrahepatic biliary ductal dilatation, common duct estimated at 3 mm. No choledocholithiasis. Pancreas: Unremarkable. No ductal dilation. Intraperitoneal space: No fluid collection. MR/MR MRCP [id number] IMPRESSION: Cholelithiasis, no choledocholithiasis.
--- NOTE | 2020-02-16 06:48 | PC.NURSE ---
Patient completing MRI screening form
--- NOTE | 2020-02-16 06:59 | PC.NURSE ---
take over lpatient care patient resting quietly
--- NOTE | 2020-02-16 08:22 | PC.NURSE ---
patient to mri per ems
--- NOTE | 2020-02-16 10:06 | PC.NURSE ---
0915 patient returned from ri
--- NOTE | 2020-02-18 08:51 | DCPLANNER ---
lead assistant manager had message to schedule a follow up appointment for patient with general surgery. lead assistant manager called [facility], spoke with Jesenia, gave clinic patients information. lead assistant manager was told that patients information would be printed and reviewed. Clinic will call patient with appointment information.
[2020-02-18 11:24] LABS: Coronavirus Lab Test PTC NOT DETECTED
--- NOTE | 2020-02-19 12:06 | DCPLANNER ---
Patient has a follow up appointment scheduled for Wednesday, February 19, 2020 at 3:[address] Hansen, at [facility]. Clinic called patient with appointment information.
--- NOTE | 2020-02-21 12:32 | DCPLANNER ---
Patient did attend appointment scheduled for 02.19.20 with [facility].
== END 2020-02-16 12:00 | disposition home or self-care (01) ==
PROVIDERS: Emergency Medicine; Emergency Provider Family Medicine; PCP Family Medicine
DX: K81.9 Cholecystitis, unspecified (principal)
CPT/HCPCS: 12345; 36415; 74181; 76705; 80053; 81001; 83690; 84703; 85025; 87635; 96365; 96375; 99283; J2270; J2405; J2543; J7030

== ENCOUNTER 2020-02-20 07:02 | Day surgery (SDC) | payer MEDICAID, SELFPAY ==
[2020-02-20] VITALS (9 sets, daily range): BP systolic 105–136; BP diastolic 67–96; PULSE 66–110; RESP 12–20; TEMP 36.5–37; O2SAT 98–100
[2020-02-20 07:27] LABS: OR HCG Qualitative Urine Negative (Negative)
[2020-02-20] MEDS: sodium chloride 0.9% 1,000 ML 30 ML IV (07:44)
[2020-02-20] MEDS: scopolamine 1.5 Patch 1 PATCH TRANSDERMA (07:44)
--- NOTE | 2020-02-20 08:06 | W.PM.OPSUD ---
Surgery/Procedure H&P Update DATE OF PROCEDURE: February 20, 2020 DATE H&P PERFORMED: 02/19/20 H&P UPDATE INFORMATION: I have reviewed H&P completed within last 30 days, I have examined patient prior to procedure and No changes to prior documentation PREOP DIAGNOSIS: cholelithiasis PLANNED PROCEDURE: Operation Date: 02/20/20 09:00 Proposed Procedures p Laparoscopic poss Open Cholecystectomy 27423 K80.20(Not Applicable) - Dominik Hansen MD
--- NOTE | 2020-02-20 08:19 | ANES.PREANE2 ---
Pre-Anesthetic Assessment Pre-Anesthetic Assessment: Height/Weight: Height 1.6 m Weight 63.503 kg Temp Pulse Resp BP Pulse Ox 97.7 F 110 H 18 105/84 98 02/20/20 07:28 02/20/20 07:28 02/20/20 07:28 02/20/20 07:28 02/20/20 07:28 Preop Diagnosis: cholelithiasis Proposed Procedure: Operation Date: 02/20/20 09:00 Proposed Procedures p Laparoscopic poss Open Cholecystectomy 55519 K80.20(Not Applicable) - Dominik Hansen MD Familial anesthetic complications: none Was Beta Jhony taken within 24 hours: N/A Last intake: Intake Last Liquid Date 02/19/20 Last Liquid Time 22:00 Last Solid Date 02/19/20 Last Solid Time 22:00 Social: Social History: No alcohol and No tobacco Exam: Pre-Anes Outpt Exam: alert, oriented x 3, clear to auscultation bilaterally and regular rate & rhythm Airway: Cervical ROM: WNL MP: 2 Dentition: Other (missing) Pulmonary: Pulmonary: None reported CV/HEM: CV/HEM: None reported : : None reported Hepatic: Hepatic: None reported Anesthetic Plan: ASA status: 1 Anesthesia: General Risk of > 500 ml blood loss (7ml/kg in children): No Meds/Allergies Current Medications: Current Medications Generic Name Dose Route Start Last Admin Trade Name Freq PRN Reason Stop Dose Admin Sodium Chloride 1,000 mls @ 30 ml s/hr 02/20/20 07:30 02/20/20 07:44 Sodium Chloride 0.9% IV 02/21/20 07:29 30 mls/hr .Q24H LIZA Administration PFSH Anesthesia PFSH: Medical History No pertinent past medical history Surgical History History of surgery SURGERY ON LOWER LEFT JAW TO REMOVE CYST IN 2014 No pertinent past surgical history Family History Other Diabetes Denies family history of CAD (coronary artery disease) Anesthesia complication Bleeding disorder Cancer Hypertension Social History Smoking and tobacco status: never smoked Alcohol intake: never Household members: spouse Marital status: Current occupational status: employed History of recent travel: No Female Reproductive History: Date of last menstrual period: 01/20/20 Data Anesthesia Other Labs: Laboratory Results - last 48 hr 02/20/20 07:26 Urine HCG, Qual Negative Cardiac Studies: No Data to Display
--- NOTE | 2020-02-20 10:55 | PM.OP ---
Operative Report Date of procedure: February 20, 2020 Pre-op Diagnosis: cholelithiasis Post-op diagnosis: same Procedure Done: Laparoscopic cholecystectomy Specimens removed/disposition: Gallbladder Surgeon: Dominik Hansen Anesthesia: General Estimated blood loss (mL): 10 Condition: stable Disposition: PACU Procedure: The patient was taken to the operating room and was intubated under general anesthesia. After the antibiotic had been administered, the abdomen was prepped and draped in a sterile manner. Using a #15 blade, a 1 centimeter infraumbilical curvilinear incision was made and using an open Donnell technique the peritoneal cavity was entered. A 10 millimeter port was placed and 15 millimeters of pneumoperitoneum was created. A 10 millimeter, 30 degrees scope was then introduced. Three 5 millimeter ports were placed in the epigastric, midclavicular and the anterior axillary line two fingerbreadths below the costal margin on the right side under the direct visualization. Ratcheted forceps were introduced into the lateral most port and was used to retract the fundus of the gallbladder cephalad and using forceps the infundibulum of the gallbladder was retracted laterally. Using L-hook cautery the peritoneum overlying the Calot's triangle was opened medially and laterally until the cystic duct and the cystic artery were skeletonized. Dissection was carried along the body of the gallbladder and after ensuring critical view of safety, 4 clips applied on the cystic duct and 3 clips applied on the cystic artery and cut leaving, 3 clips on the remaining portion of the duct and 2 clips on the remaining portion of the artery. The rest of the gallbladder was dissected off the liver using L-hook cautery. There was no bleeding or bile leaking noted from the gallbladder fossa and the clips appeared to be in place. An EndoCatch bag was introduced to remove the gallbladder. All the ports were removed under direct visualization and there was no bleeding noted from the port sites. The fascia of the umbilicus was closed using [id number] 0 Vicryl sutures and the subcutaneous tissue was approximated using 3-0 Vicryl sutures. The skin at all four ports were closed using 4-0 Monocryl and Dermabond. A total of 10 millimeters of 0.5% Marcaine was infiltrated around the port sites. The patient was stable throughout the procedure.
[2020-02-20] MEDS: HYDROcodone-acetaminophen 5-325 mg Tablet 1 TAB PO (11:47)
== END 2020-02-20 12:09 | disposition home or self-care (01) ==
PROVIDERS: Anesthesiology; PCP Family Medicine; Visit Provider Surgery
PROC: 0FT44ZZ Resection of Gallbladder, Percutaneous Endoscopic Approach (ICD-10-PCS; CPT 47562; principal; 2020-02-20 09:00)
DX: K80.10 Calculus of gallbladder with chronic cholecystitis without obstruction (principal)
CPT/HCPCS: 47562; 12345; 81025; 84703; 88304; J0131; J0690; J1100; J2270; J2405; J2704; J2710; J3010; J3490; J7030

== ENCOUNTER → 2022-05-21 11:10 | Outpatient (BNVA) | payer BC, MEDICAID, SELFPAY | PROVIDERS: PCP Family Medicine; Visit Provider Family Medicine | DX: Z34.90 Encounter for supervision of normal pregnancy, unspecified, unspecified trimester (principal); R30.0 Dysuria | CPT/HCPCS: 80307; 81000; 81025; 84144; 84443; 84702; 85025; 86592; 86762; 86803; 86850; 86900; 87086; 87340; 87491; 87591; 87806; 88175 ==

== ENCOUNTER → 2022-06-16 09:59 | Outpatient (BNVA) | payer BC, MEDICAID, SELFPAY | PROVIDERS: PCP Family Medicine; Visit Provider Family Medicine | DX: R79.89 Other specified abnormal findings of blood chemistry (principal); Z34.80 Encounter for supervision of other normal pregnancy, unspecified trimester | CPT/HCPCS: 84439; 84443 ==

== ENCOUNTER → 2022-07-05 15:25 | Outpatient (BNVA) | payer BC, MEDICAID, SELFPAY | PROVIDERS: PCP Family Medicine; Visit Provider Family Medicine | DX: Z34.80 Encounter for supervision of other normal pregnancy, unspecified trimester (principal) | CPT/HCPCS: 76801 ==

== ENCOUNTER → 2022-08-18 09:21 | Outpatient (BNVA) | payer BC, MEDICAID, SELFPAY | PROVIDERS: PCP Family Medicine; Visit Provider Family Medicine | DX: R30.0 Dysuria (principal); Z34.90 Encounter for supervision of normal pregnancy, unspecified, unspecified trimester; N39.0 Urinary tract infection, site not specified | CPT/HCPCS: 81000; 87086 ==

== ENCOUNTER 2022-09-08 13:17 | Outpatient (CLI) | payer BC, MEDICAID, SELFPAY ==
--- NOTE | 2022-09-08 13:45 | US_ITS ---
WS: [id number] ULTRASOUND OB COMPLETE TECHNIQUE: Complete ultrasound. CLINICAL INFORMATION: Anatomy US - 5-6 weeks from now COMPARISON: None. FINDINGS: Closed Cervix measures 3.7 cm Single interuterine gestation is identified with vertex presentation. Placenta is posterior. Placenta grade 0. Normal amniotic fluid volume. cardiac activity: 144 BPM. AGA: 21w6d ALHAJI by ultrasound: 01/13/2023 Estimated weight: 442 g; 0 lbs 16 oz. Based on GA: 47th percentile BDP: 4.9 cm = 20w6d HC: 19.6 cm = 21w6d AC: 16.0 cm = 21w1d FEMUR LENGTH: 3.9 cm = 22w3d Anatomic survey: profile not visualized. Outflow tract not well visualized. Four-chamber heart view not well visualized. Anatomic survey is otherwise normal. Normal stomach. Kidneys and bladder are normal. Normal 3 vessel cord. Normal 3 vessel cord insertion.Normal spine. Intracranial contents are normal. Normal posterior fossa and cisterna magna. US/US OB >= 14 weeks fetus [id number] IMPRESSION: Technically difficult study due to body habitus and position. 1. Single intrauterine with visualized cardiac activity. AGA 21w6d w ith ALHAJI 01/13/2023. 2. Placenta is posterior. No evidence of abruption or previa. 3. profile not visualized. Outflow tracts not well visualized. Four-fay gael heart view not well visualized. Recommend interval follow-up in one to 2 we eks for additional attempt at above anatomy 4. Normal amniotic fluid volume.
== END 2022-09-08 13:18 | disposition home or self-care (01) ==
LOC: RAD 13:20
PROVIDERS: PCP Family Medicine; Visit Provider Family Medicine
DX: Z36.89 Encounter for other specified antenatal screening (principal); Z3A.21 21 weeks gestation of pregnancy
CPT/HCPCS: 76805

== ENCOUNTER 2022-10-13 07:42 | Outpatient (CLI) | payer BC, MEDICAID, SELFPAY ==
--- NOTE | 2022-10-13 08:00 | US_ITS ---
WS: [id number] ULTRASOUND OB FOCUSED HISTORY: Follow up US on heart, outflow tracts and profile COMPARISON: 09/08/2022 Single intrauterine gestation in cephalic position. Cervix is closed at 4.2 cm. Posterior placenta. N o previa. Grade 1. heart rate at 114 BPM. Normal four-chamber heart and cardiac outflow tracts and aortic arch are well visualized and normal. Additional imaging of the profile is normal. US/US OB limited [id number] IMPRESSION: 1. Follow-up imaging of the heart and outflow tracts is normal. 2. Normal profile. 3. Low heart rate. Recommend clinical evaluation.
== END 2022-10-13 07:43 | disposition home or self-care (01) ==
PROVIDERS: PCP Family Medicine; Visit Provider Family Medicine
DX: Z34.80 Encounter for supervision of other normal pregnancy, unspecified trimester (principal)
CPT/HCPCS: 76815

== ENCOUNTER → 2022-10-20 09:24 | Outpatient (BNVA) | payer BC, MEDICAID, SELFPAY | PROVIDERS: PCP Family Medicine; Visit Provider Family Medicine | DX: Z34.80 Encounter for supervision of other normal pregnancy, unspecified trimester (principal); Z23 Encounter for immunization | CPT/HCPCS: 82950 ==

== ENCOUNTER → 2022-11-17 10:54 | Outpatient (BNVA) | payer BC, MEDICAID, SELFPAY | PROVIDERS: PCP Family Medicine; Visit Provider Family Medicine | DX: Z34.80 Encounter for supervision of other normal pregnancy, unspecified trimester (principal); Z51.81 Encounter for therapeutic drug level monitoring | CPT/HCPCS: 85025 ==

== ENCOUNTER → 2022-12-15 10:45 | Outpatient (BNVA) | payer BC, MEDICAID, SELFPAY | PROVIDERS: PCP Family Medicine; Visit Provider Family Medicine | DX: Z34.80 Encounter for supervision of other normal pregnancy, unspecified trimester (principal) | CPT/HCPCS: 87081 ==

== ENCOUNTER 2023-01-09 08:45 | Inpatient (IN) | payer BC, MEDICAID, SELFPAY ==
[2023-01-09] VITALS (57 sets, daily range): BP systolic 108–144; BP diastolic 51–85; PULSE 91–153; RESP 16–18; TEMP 35.6–37.3; O2SAT 99–100; BMI 29.6
[2023-01-09 08:59] LABS: Basophils # 0.1 10^3/uL (0.0-0.1); Basophils % 0.4 %; Eosinophils # 0.1 10^3/uL (0.0-0.8); Eosinophils % 0.3 %; Hematocrit 37.4 % (37.0-47.0); Lymphocytes # 3.3 10^3/uL (0.8-4.8); Mean Corpuscular HGB Conc 29.4 g/dL (30.0-36.0); Mean Corpuscular Volume 71.4 fl (81-99); Monocytes % 5.5 %; Neutrophils # 13.76 10^3/uL (1.8-7.7); Neutrophils % 74.9 %; Nucleated Red Blood Cells % 0 %; Platelet Count 369 10^3/cmm (130-400); Red Blood Count 5.24 10^6/uL (4.1-5.3); Red Cell Distribution Width 16.2 % (12.1-15.1); White Blood Count 18.4 10^3/uL (4.0-10.0)
[2023-01-09] MEDS: lactated ringers 1,000 ML 999 ML IV ×2 (09:26→10:33)
--- NOTE | 2023-01-09 09:56 | PM.HP ---
Providers/Chief Complaint Admitting Physician: Yash Gottlieb MD Primary Care Provider: Yash Gottlieb MD Chief Complaint: Contractions History of Present Illness Janna Walters is a 22 year old @ 39.2 weeks by LMP c/w 13 wk US. Preg c/b h/o ASCUS, elevated TSH, anemia. The patient presented to labor and delivery triage at approximately 6:30 AM on 01/09/2023 due to contractions that started at approximately 4 AM on 01/09/2023. The contractions gradually got stronger and closer together and for this reason she presented to triage. Upon presentation she was 3 cm dilated. After 2 hours, she changed up to 5 cm dilation. For this reason she was kept for spontaneous labor. The patient denies any chest pains, shortness of breath, nausea, vomiting, leakage of fluid, fever. She admits to minimal spotting. Medications/Allergies Home Medications Medication Instructions Recorded Confirmed Last Taken Type cetirizine 10 mg tablet 10 mg PO DAILY PRN allergy 02/02/22 01/09/23 Unknown Rx symptoms #30 tabs diphenhydramine HCl 25 mg tablet 25 mg PO .qhs PRN allergy symptoms 02/02/22 01/09/23 Unknown Rx #30 tabs fluticasone propionate 50 1 spray intranasal BID #16 grams 02/02/22 01/09/23 Unknown Rx mcg/actuation nasal spray,suspension triamcinolone acetonide 0.1 % 1 applic topical DAILY #30 grams 06/16/22 01/09/23 Unknown Rx topical cream ferrous sulfate 325 mg (65 mg 325 mg PO BID #60 tabs 11/30/22 01/09/23 Unknown Rx iron) tablet Allergies Allergy/AdvReac Type Severity Reaction Status Date / Time sulfamethoxazole Allergy Deonna Verified 01/09/23 06:36 [From Bactrim] Lip/Tongue/Throat trimethoprim [From Bactrim] Allergy Deonna Verified 01/09/23 06:36 Lip/Tongue/Throat PFSH Acute PFSH: Medical History Allergic rhinitis due to allergen No pertinent past medical history Surgical History History of surgery SURGERY ON LOWER LEFT JAW TO REMOVE CYST IN 2013 Status post laparoscopic cholecystectomy (02/20/20) Family History Other Diabetes Denies family history of CAD (coronary artery disease) Anesthesia complication Bleeding disorder Cancer Hypertension Social History Smoking and tobacco status: never smoked Alcohol intake: never Substance/Drug Use: never Household members: spouse Marital status: Current occupational status: employed Female Reproductive History: Date of last menstrual period: 04/07/22 : 2 Vitals/I&O/Wt Last Vital Signs Pulse 94 01/09/23 09:41 Resp 18 01/09/23 08:28 BP 135/63 01/09/23 09:41 O2 Del Method Room Air 01/09/23 08:56 Weight last 48 hrs Weight 162 lb Physical Exam Narrative: General: Alert and oriented x3 Eyes: Pupils equal round and reactive to light and accommodation Mouth: Mucous membranes moist, pharynx non-erythematous Cardiac: Regular rate and rhythm without murmurs Lungs: Clear to auscultation bilaterally without wheezes, crackles or rhonchi Abdomen: Soft, non-tender, fundus consistent with gestational age Extremities: Trace edema in the bilateral lower extremities Data 01/09/23 Unknown A&P Assessment and plan (1) Supervision of normal intrauterine in multigravida: The patient is doing well overall at this time. She is making change on her own. She is keara every 1 to 3 minutes. heart tones are in the mid 150s with moderate ability good accelerations. She has a category 1 tracing. The patient is GBS negative. We will proceed with routine intrapartum care. The patient would like to have an epidural. She is currently getting a bolus for this. All questions were answered. The patient and her family are in agreement with current plan of care. Attestations Medical Necessity Statement*: The patient will be here for greater than 2 midnights due to routine intrapartum and management of labor and delivery. Coding Level of Care Code Acute Code for Chg Fwd Diagnoses Supervision of normal intrauterine in multigravida Z34.80
--- NOTE | 2023-01-09 10:31 | P.ANESASSM_ITS ---
Pre-Anesthetic Assessment Height/Weight: Height 1.57 m Weight 73.482 kg Pulse Resp BP O2 Del Method 111 H 18 140/61 Room Air 01/09/23 10:27 01/09/23 08:28 01/09/23 10:27 01/09/23 08:56 Preop Diagnosis: labor pain epidural Familial anesthetic complications: none Was Beta Jhony taken within 24 hours: N/A Was Clonidine taken within 24 hours: N/A Social No alcohol and No tobacco Exam alert, oriented x 3, clear to auscultation bilaterally and regular rate & rhythm Airway Submandibular: within normal limits Cervical ROM: within normal limits Mallampati: Class II Dentition: full History/ROS Other Pulmonary None reported CV/HEM Anemia None reported Hepatic None reported GI Gastroesophageal Reflux Disease Metabolic None reported Musc/skel None reported Neuropsych Headache (migraine) Anesthetic Plan ASA status: 2 Anesthesia: Regional (specify below) Risk of > 500 ml blood loss (7ml/kg in children): No Medications/Allergies Home Medications Medication Instructions Recorded Confirmed Last Taken Type cetirizine 10 mg tablet 10 mg PO DAILY PRN allergy 02/02/22 01/09/23 Unknown Rx symptoms #30 tabs diphenhydramine HCl 25 mg tablet 25 mg PO .qhs PRN allergy symptoms 02/02/22 01/09/23 Unknown Rx #30 tabs fluticasone propionate 50 1 spray intranasal BID #16 grams 02/02/22 01/09/23 Unknown Rx mcg/actuation nasal spray,suspension triamcinolone acetonide 0.1 % 1 applic topical DAILY #30 grams 06/16/22 01/09/23 Unknown Rx topical cream ferrous sulfate 325 mg (65 mg 325 mg PO BID #60 tabs 11/30/22 01/09/23 Unknown Rx iron) tablet Allergies Allergy/AdvReac Type Severity Reaction Status Date / Time sulfamethoxazole Allergy Deonna Verified 01/09/23 06:36 [From Bactrim] Lip/Tongue/Throat trimethoprim [From Bactrim] Allergy URSZULA-Quita Verified 01/09/23 06:36 Lip/Tongue/Throat [facility] Anesthesia Medical History Allergic rhinitis due to allergen No pertinent past medical history Surgical History History of surgery SURGERY ON LOWER LEFT JAW TO REMOVE CYST IN 2014 Status post laparoscopic cholecystectomy (02/20/20) Family History Other Diabetes Denies family history of CAD (coronary artery disease) Anesthesia complication Bleeding disorder Cancer Hypertension Social History Smoking and tobacco status: never smoked Alcohol intake: never Substance/Drug Use: never Household members: spouse Marital status: Current occupational status: employed Female Reproductive History Date of last menstrual period: 04/07/22 : 2 Data Anesthesia 01/09/23 Unknown Short CBC 01/09/23 Range/Units Unknown WBC 18.4 H (4.0-10.0) 10^3/uL Hgb 11.0 L (11.5-15.3) g/dL Hct 37.4 (37.0-47.0) % MCV 71.4 L (81-99) fl Plt Count 369 (130-400) 10^3/cmm Neut % (Auto) 74.9 % Neut # (Auto) 13.76 H (1.8-7.7) 10^3/uL Cardiac Studies: No Data to Display
--- NOTE | 2023-01-09 11:14 | ANES.PROC ---
Anesthesia Procedures Procedure/Date: 01/09/23 epidural Procedure Narrative: epidural complete, bolus given, epidural pump initiated with [employer] education given, vitals taken during procedure and satisfactory throughout, patient admits to decrease pain, report of procedure to OB RN Epidural: Time Out Performed: Yes Consents Signed: Procedure Consent Consent: requested by attending/covering physician, from patient, risks and benefits reviewed and patient agrees to proceed Lumbar Level: L3-L4 Epidural position: sitting Epidural procedure: sterile prep of area, 1% lidocaine to numb the area (3 mL), 18 g needle, negative for paresthesia passed, neg for paresthesia, test dose given, 1.5% xylocaine 1:200k epi (5 mL), 0.2% Ropivacaine bolus ml (5 mL), placed PCEA, no systemic response, sterile dressing applied, L.U.D. no apparent complications and 0.2% Ropiavacaine @ mls/hr (13 mL/hr)
[2023-01-09] MEDS: dextrose 5%-lactated ringers 1,000 ML 125 ML IV (11:35)
--- NOTE | 2023-01-09 11:42 | ANES.PROC ---
Anesthesia Procedures Procedure/Date: 01/09/23 Patient complains of Left lower localozed area is still painful during contractions. 100mcg fentanyl and a 5 mL pump bolus was given
--- NOTE | 2023-01-09 14:28 | PM.DELIVERY ---
Delivery Note: Date of delivery: January 09, 2023 Pre-delivery diagnoses: 1. Intrauterine at 39.2 weeks gestation 2. Elevated TSH 3. Anemia Post-delivery diagnoses: 1. Intrauterine status post spontaneous vaginal delivery at 39.2 weeks gestation 2. Elevated TSH 3. Anemia Procedure: Spontaneous vaginal delivery Delivering Physician: Yash Gottlieb MD Estimated blood loss (mL): 50 Findings: 1. Delivery of healthy female weighing 6 pounds 6 ounces with Apgars of 9 and 9 Pre-Delivery Course: Janna Walters is a 22 year old G2 now P2 s/p spontaneous vaginal delivery@ 39.2 weeks by LMP c/w 13 wk US. Preg c/b h/o ASCUS, elevated TSH, anemia. The patient presented to labor and delivery triage at approximately 6:30 AM on 01/09/2023 due to contractions that started at approximately 4 AM on 01/09/2023.? The contractions gradually got stronger and closer together and for this reason she presented to triage.? Upon presentation she was 3 cm dilated.? After 2 hours, she changed up to 5 cm dilation.? For this reason she was kept for spontaneous labor. The patient continued to make steady change on her own and received a laboring epidural. At 1309 on 01/09/2023, she had spontaneous rupture of membranes. Meconium was noted. She was complete by 1345 on 01/09/2023. Delivery: The patient began pushing at 1350 on 01/09/2023. The patient pushed well and after 3 contractions the 's head delivered in the OA position at 1356 on 01/09/2023. The left shoulder was the anterior shoulder and it delivered with ease. There was no nuchal cord. The infant was crying immediately upon delivery and was vigorous. The infant's mouth and nose were bulb suctioned by myself. The was placed on the mother's chest where the nurses were waiting to care for her. The cord was clamped by myself after approximately 1 minute. The cord was then cut by the 's father. Cord blood was obtained. The cord was then drained of blood and traction was placed on the umbilical cord. The placenta delivered without complication at 1401 on 01/09/2023. The placenta was noted to be intact with a central umbilical cord insertion site. The uterus was massaged and IV Pitocin was bolused. The patient had a small amount of bleeding with EBL of 50 mL. The cervix was inspected and no lacerations were noted. The vaginal wall was inspected and no lacerations were noted. History History History 2 Term 2 0 Miscarriages/Ectopic 0 Living Children 2 Past Pregnancies Del. Date GA/Weeks Outcome Route Wt Inf Gender Labor Lgth Comp. Anesthesia Location 01/08/20 40 live - full term Vaginal Male 16 OZ - [place] 01/09/23 39 live - full term Vaginal 6 lb 6 oz Female [facility] A&P Assessment and plan (1) Spontaneous vaginal delivery: Coding Level of Care Code Acute Code for Chg Fwd Diagnoses Spontaneous vaginal delivery O80
[2023-01-09] MEDS: ibuprofen 800 mg tablet PO (15:51)
[2023-01-09] MEDS: lanolin oint 7 gm 1 APPLIC TOPICAL (19:08)
[2023-01-09] MEDS: docusate sodium 100 mg Capsule PO (19:08)
[2023-01-10] VITALS (9 sets, daily range): BP systolic 114–118; BP diastolic 63–77; PULSE 85–96; RESP 17–18; TEMP 36.1–36.2
[2023-01-10] MEDS: acetaminophen 325 mg Tablet 650 MG PO (00:21)
[2023-01-10] MEDS: ibuprofen 800 mg tablet PO ×3 (00:22→15:09)
[2023-01-10 02:39] LABS: Hematocrit 27.4 % (37.0-47.0); Mean Corpuscular HGB Conc 29.2 g/dL (30.0-36.0); Mean Corpuscular Hemoglobin 21.2 pg (28.0-34.0); Mean Corpuscular Volume 72.5 fl (81-99); Mean Platelet Volume 9.6 fL (7.4-10.4); Platelet Count 243 10^3/cmm (130-400); Red Blood Count 3.78 10^6/uL (4.1-5.3); Red Cell Distribution Width 16.2 % (12.1-15.1); White Blood Count 17.9 10^3/uL (4.0-10.0)
--- NOTE | 2023-01-10 07:23 | ANE.PACU2 ---
Inpatient post-anesthesia follow up: Airway intact: Yes Vital signs: Temperature 97.1 F Pulse Rate 92 Respiratory Rate 17 Blood Pressure 115/65 Pulse Oximetry 100 Oxygen Delivery Me thod Room Air Oxygen Flow Rate Fraction of Inspir ed Oxygen Hydration adequate: Yes Nausea and vomiting: No Pain level: 2 Mental status: Baseline
[2023-01-10] MEDS: ferrous sulfate EC 325 mg Tablet PO ×2 (09:25→18:10)
[2023-01-10] MEDS: docusate sodium 100 mg Capsule PO ×2 (09:25→18:10)
[2023-01-10] MEDS: prenatal vitamin Capsule 1 CAP PO (09:25)
--- NOTE | 2023-01-10 17:07 | PM.DCS ---
Discharge Providers Date of Admission: 01/09/23 08:45 Date of Discharge: January 10, 2023 Attending Provider at Admission: Yash Gottlieb MD Attending Provider at Discharge: Yash Gottlieb MD Primary Care Provider: Yash Gottlieb MD Diagnoses at Discharge Discharge Diagnosis (1) Supervision of normal intrauterine in multigravida: Status: Resolved Other Information Additional DC diagnoses/information: 1. Intrauterine status post spontaneous vaginal delivery at 39.2 weeks gestation 2. Elevated TSH 3. Anemia 4. Delivery of healthy female weighing 6 pounds 6 ounces with Apgars of 9 and 9 Reason for Visit Reason for Visit: Contractions Brief History: Janna Walters is a 22 year old G2 now P2 s/p spontaneous vaginal delivery@ 39.2 weeks by LMP c/w 13 wk US. Preg c/b h/o ASCUS, elevated TSH, anemia. The patient presented to labor and delivery triage at approximately 6:30 AM on 01/09/2023 due to contractions that started at approximately 4 AM on 01/09/2023.? The contractions gradually got stronger and closer together and for this reason she presented to triage.? Upon presentation she was 3 cm dilated.? After 2 hours, she changed up to 5 cm dilation.? For this reason she was kept for spontaneous labor. Hospital Course Hospital Course The patient continued to make steady change on her own and received a laboring epidural.? At 1309 on 01/09/2023, she had spontaneous rupture of membranes.? Meconium was noted.? She was complete by 1345 on 01/09/2023. The patient began pushing at 1350 on 01/09/2023.? The patient pushed well and after 3 contractions the 's head delivered in the OA position at 1356 on 01/09/2023.? The patient had an uncomplicated delivery without complications. She will be discharged home with routine precautions. All questions were answered. We will plan to follow-up at 6 weeks or sooner if needed. Physical Exam Narrative: General: Alert and oriented x3 Cardiac: Regular rate and rhythm without murmurs Lungs: Clear to auscultation bilaterally without wheezes, crackles or rhonchi Abdomen: Soft, mild tenderness over uterus. The uterus is firm and 2 cm below the umbilicus. Extremities: Trace edema in the bilateral lower extremities Urinary Catheter Management: [place]: Cath Placed During This Visit: yes, but has since been removed by the nurse Reason for Continuing Indwelling Catheter: Decision to DC Catheter Urinary Catheter Date of Insertion: 01/09/23 Urinary Catheter Time of Insertion: 11:59 Date Urinary Catheter Removed: 01/09/23 Time Urinary Catheter Discontinued: 13:49 Discharge Data Studies Completed and Pending Laboratory Results WBC 17.9 10^3/uL (4.0-10.0) H 01/10/23 02:25 RBC 3.78 10^6/uL (4.1-5.3) L 01/10/23 02:25 Hgb 8.0 g/dL (11.5-15.3) L 01/10/23 02:25 Hct 27.4 % (37.0-47.0) L 01/10/23 02:25 MCV 72.5 fl (81-99) L 01/10/23 02:25 MCH 21.2 pg (28.0-34.0) L 01/10/23 02:25 MCHC 29.2 g/dL (30.0-36.0) L 01/10/23 02:25 RDW 16.2 % (12.1-15.1) H 01/10/23 02:25 Plt Count 243 10^3/cmm (130-400) D 01/10/23 02:25 MPV 9.6 fL (7.4-10.4) 01/10/23 02:25 Neut % (Auto) 74.9 % 01/09/23 Unknown Lymph % (Auto) 18.0 % 01/09/23 Unknown Sanders % (Auto) 5.5 % 01/09/23 Unknown Eos % (Auto) 0.3 % 01/09/23 Unknown Baso % (Auto) 0.4 % 01/09/23 Unknown Neut # (Auto) 13.76 10^3/uL (1.8-7.7) H 01/09/23 Unknown Lymph # (Auto) 3.3 10^3/uL (0.8-4.8) 01/09/23 Unknown Sanders # (Auto) 1.0 10^3/uL (0.2-0.9) H 01/09/23 Unknown Eos # (Auto) 0.1 10^3/uL (0.0-0.8) 01/09/23 Unknown Baso # (Auto) 0.1 10^3/uL (0.0-0.1) 01/09/23 Unknown Nucleated RBC % (auto) 0 % 01/09/23 Unknown Nucleated RBCs # 0.0 /100WBC 01/09/23 Unknown Vitals Last Vital Signs Temp 97.1 F L 01/10/23 03:53 Pulse 85 01/10/23 15:11 Resp 17 01/10/23 14:23 BP 117/65 01/10/23 15:11 Pulse Ox 100 01/09/23 12:00 O2 Del Method Room Air 01/09/23 08:56 Discharge Plan Discharge Patient Disposition: Home Condition: Good Prescriptions: New ibuprofen 800 mg Tablet 800 mg PO TID Qty: 30 1RF -U 106.5-1 mg Capsule 1 cap PO DAILY Qty: 30 3RF Continued fluticasone propionate 50 mcg/actuation spray,suspension 1 spray intranasal BID Qty: 16 0RF Rx Instructions: administer into each nostril cetirizine 10 mg tablet 10 mg PO DAILY PRN (Reason: allergy symptoms) Qty: 30 0RF triamcinolone acetonide 0.1 % cream 1 applic topical DAILY Qty: 30 6RF ferrous sulfate 325 mg (65 mg iron) tablet 325 mg PO BID Qty: 60 3RF Discontinued diphenhydramine HCl 25 mg tablet 25 mg PO .qhs PRN (Reason: allergy symptoms) Qty: 30 0RF Discharge Orders: Discharge Order (Routine); Ordered 01/10/23 Ordered By: Yash Gottlieb Referrals: Yash Gottlieb MD [Primary Care Provider] - 6 Weeks Discharge Diet: Regular Discharge Activity: Increase activity as tolerated Patient Instructions: Depression (DC), Bleeding (DC), Preeclampsia and Eclampsia After Delivery (GEN), Hemorrhage (DC), OB Discharge Report, OB Food/Drug Interaction Guide, Opioid Safety, OB Home Care, OB [facility], OB Vaginal Deliveries, Abnormal Bleeding Activity Restrictions/Additional Instructions: Nothing per vagina for 6 weeks. I would recommend showers instead of baths for the first 6 weeks. If you have any concern for heavy bleeding, please seek immediate medical attention. Discharge Attestations Time Spent in Discharge Care*: less than 30 min Quality Metrics Clinical Quality Measures [ No reported AMI, CVA or VTE this stay] Coding Level of Care Code Acute Code for Chg Fwd Diagnoses Supervision of normal intrauterine in multigravida Z34.80
== END 2023-01-10 18:39 | disposition home or self-care (01) | DRG 807 ==
LOC: OPOB 08:45 → OBGYN 08:45
PROVIDERS: Admitting Provider Family Medicine; PCP Family Medicine; Visit Provider Family Medicine
DX: O99.02 Anemia complicating childbirth (principal); Z37.0 Single live birth; D64.9 Anemia, unspecified; Z3A.39 39 weeks gestation of pregnancy; O77.0 Labor and delivery complicated by meconium in amniotic fluid
CPT/HCPCS: 36415; 51702; 59025; 59409; 85025; 85027; 96374; 98960; 99211; J2795; J3010; J7040; J7120; J7121

== ENCOUNTER → 2025-03-12 12:22 | Outpatient (BNVA) | payer BC, SELFPAY | PROVIDERS: PCP Family Medicine | DX: J02.9 Acute pharyngitis, unspecified (principal) | CPT/HCPCS: 87071; 87880 ==

== ENCOUNTER → 2025-04-29 10:01 | Outpatient (BNVA) | payer MEDICAID, SELFPAY | PROVIDERS: PCP Family Medicine; Visit Provider Family Medicine | DX: Z00.00 Encounter for general adult medical examination without abnormal findings (principal) | CPT/HCPCS: 87624 ==

== ENCOUNTER 2025-06-03 10:58 | Outpatient (CLI) | payer MEDICAID, SELFPAY ==
--- NOTE | 2025-06-03 11:15 | US_ITS ---
WS: [id number] THYROID ULTRASOUND HISTORY: Thyroid nodule COMPARISON: None available. Right lobe: 2.0 cm x 2.4 cm x 4.8 cm (w x ap x l). Volume: 10.9 cm3. Hypoechoic mass with a few scattered cystic areas in the mid thyroid. This mass measures 1.7 x 1.5 x 1.7 cm. Mild increased vascularity. There are a few scattered echogenic foci. No extrathyroidal extension. Left lobe: 1.1 cm x 1.6 cm x 4.4 cm (w x ap x l). Volume: 3.7 cm3. Mildly heterogeneous LEFT thyroid. No nodule. Isthmus: 0.5 cm. US/US thyroid [id number] IMPRESSION: 1. TI-RADS 4; RIGHT thyroid nodule mid gland. Recommend ultrasound-guided FNA as per TI-RADS criteria. 2. No LEFT thyroid nodule.
== END 2025-06-03 10:59 | disposition home or self-care (01) ==
LOC: RAD 10:59
PROVIDERS: PCP Family Medicine; Visit Provider Family Medicine
DX: E04.1 Nontoxic single thyroid nodule (principal); E07.89 Other specified disorders of thyroid
CPT/HCPCS: 76536